=== PATIENT | female | born 1960 | race Caucasian/White ===

== ENCOUNTER 2016-10-28 16:23 | Emergency (ER) | payer OTHER ==
[~2016-10-28] VITALS: Ht 170.2 cm; Wt 86.2 kg
[~2016-10-28 16:23] MED LIST: ACIP20TA PO; ALBU17IN INH; ASPI81TA7 PO; DOCU10ELUD PO; FERR325T3 PO; FLUO20CA8 PO; PRAV40TA2 PO; VIT250TA PO; VITA100072 PO; VITA2000 PO; [UNRECOGNIZED DRUG - CODE] PO; [UNRECOGNIZED DRUG - OTHER] PO
--- NOTE | 2016-10-28 20:52 | REPUSA ---
CLINICAL HISTORY: Neck pain. TECHNIQUE: Multiple axial images were obtained through the cervical spine. Images were also reconstru cted in coronal and sagittal planes. The study was performed without IV contrast. COMMENTS: There is no fracture. Grade 1 anterior spondylolisthesis of C3 on C4 is seen. the paraspinal soft t issues are unremarkable. There are no lytic or blastic lesions. Straightening of cervical lordosis is seen, suggesting muscular spasm. There is evidence of multileve l disk disease, demonstrated by osteophytosis and endplate sclerosis. No significant disk herniation is noted at any level. Canal and foramina remain patent. IMPRESSION: 1. No fracture. Grade 1 anterior spondylolisthesis of C3 on C4 2. Straightening of cervical lordosis is seen, suggesting muscular spasm. 3. Minimal multilevel spondylosis. Thank you for your kind referral of this patient.
[2016-10-28] MEDS ORDERED: NORTRIPTYLINE 10 MG CAP PO ONE (22:45)
--- NOTE | 2016-10-28 22:56 | EDDOCDS ---
Nurse's Notes [facility] Name: Kelly Tompkins Age: 55 yrs Sex: Female : 1960 Arrival Date: 10/28/2016 Time: 16:23 Bed I6 Private MD: Brain Norris Diagnosis: Unspecified injury of head;Postconcussional syndrome;Spondylolisthesis, site unspecified-CERVICAL, C3-4;Cervicalgia Presentation: 10/28 17:03 Presenting complaint: Patient states: she fell flat on her back last week on the ice kcs and hit her head - still has a headache. This patient has no additional risk factors. Adult Sepsis Screening: The patient does not have new or worsening altered mentation. Patient's respiratory rate is less than 22. Systolic blood pressure is greater than 100. Patient has a qSOFA score of 0- Negative Sepsis Screen. Suicide/Homicide risk assessment- the patient denies having any suicidal and/or homicidal ideations and does not present with any other emotional, behavioral or mental health complaints. Status: Patient is not a customer service clerk or dependent. Transition of care: patient was not received from another setting of care. 17:03 Acuity: DANIEL Level 4 kcs 17:03 Method Of Arrival: Walkin/Carried/Asstd kcs Triage Assessment: 17:05 Headache History: A change in the character of the headache the patient is experiencing kcs has occured. General: Appears comfortable, well developed, well nourished, well groomed, Behavior is cooperative, pleasant. Pain: Location: head Pain currently is 4 out of 10 on a pain scale. HIV screening NA for this visit Offered previously. Neurological: Level of Consciousness is awake, alert. Respiratory: Airway is patent Respiratory effort is even, unlabored, Respiratory pattern is regular, symmetrical. Derm: Skin is intact, is healthy with good turgor, Skin is dry, Skin is normal. Historical: - Allergies: Avelox; - Home Meds: 1. Aciphex 20 mg Oral TbEC 1 tab once daily 2. albuterol sulfate 1.25 mg/3 mL Nebulizer nebu 3 mL 4 times per day 3. Vitamin B-12 1,000 mcg Oral tab daily 4. Vitamin C 300 mg Oral chew daily 5. fluoxetine 20 mg Oral cap 1 cap once daily 6. glucosamine-chondroitin 751-091-32-5 mg oral tab daily (Last dose: 10/28/2016) 7. lorazepam 0.5 mg Oral tab .5 0.5-1 tab 3 times per day 8. metformin 500 mg Oral Tb24 1 tab once daily 9. Myrbetriq 50 mg oral Tb24 1 tab once daily 10. ocean nasal spray 0.65% 11. pravastatin 40 mg oral tab 1 tab once daily 12. ProAir HFA 90 mcg/actuation inhalation HFAA 1 puff every 4 hours 13. Pulmicort Turbuhaler 200 mcg/actuation Inhl aepb daily 14. Vitamin D 2000 unit Oral daily 15. zostavax daily - PSHx: Elbow, right fracture repair with pin and wire; Foot left fracture repair with screw placement and subsequent removal; Benign cyst removal from left breast x 3; - Social history: Smoking status: Patient states was never smoker of tobacco. No barriers to communication noted, The patient speaks fluent Bulgarian. - Family history: Not pertinent. - : The pt / caregiver states he / she is not on anticoagulants. Home medication list is obtained from the patient. - Exposure Risk Screening:: None identified. Screenin:24 Infection Control. cmb 22:49 Screening information is obtained from the patient. Fall risk: No risks identified. dsf Assistance ADL's: requires no assistance with activities of daily living. Abuse/DV Screen: The patient / caregiver reports he/she is: not in a situation that causes fear, pain or injury. Nutritional screening: No deficits noted. Advance Directives: Currently, there is no health care proxy. home support is adequate. Assessment: 19:13 Adult Sepsis Screening: The patient does not have new or worsening altered mentation. lf1 Patient's respiratory rate is less than 22. Systolic blood pressure is greater than 100. Patient has a qSOFA score of 0- Negative Sepsis Screen. General: Appears in no apparent distress, comfortable, Behavior is cooperative. Pain: Location: back of head raidiating to front and into neck Pain currently is 5 out of 10 on a pain scale. Neurological: Level of Consciousness is awake, alert, Oriented to person, place, time. Neurological: Reports headache. EENT: No deficits noted. Cardiovascular: Chest pain is denied. Respiratory: Respiratory effort is even, unlabored. GI: Reports nausea, Denies vomiting. Derm: Skin is intact. 22:48 General: Appears in no apparent distress, comfortable, Behavior is appropriate for age, dsf cooperative. Pain: Pain currently is 5 out of 10 on a pain scale. Neurological: Level of Consciousness is awake, alert. Cardiovascular: Capillary refill < 3 seconds. Respiratory: Airway is patent Respiratory effort is even, unlabored, Respiratory pattern is regular, symmetrical. Derm: Skin is pink, warm & dry. Vital Signs: 16:25 BP 144 / 77; Pulse 101; Resp 16; Temp 97; Pulse Ox 100% ; Weight 86.18 kg; Height 5 ft. cmb 7 in. (170.18 cm); Pain 10/10; 19:13 BP 151 / 77; Pulse 97; Resp 18; Pulse Ox 98% on R/A; Pain 5/10; lf1 21:36 BP 163 / 97; Pulse 76; Resp 18; Temp 99.0(TE); Pulse Ox 97% on R/A; Pain 5/10; ar3 22:55 BP 163 / 85; Pulse 85; Resp 16; Temp 96.0; Pulse Ox 96% on R/A; Pain 4/10; ead 16:25 Body Mass Index 29.76 (86.18 kg, 170.18 cm) cmb Vitals: 16:25 Log In Time: October 28, 2016 at 16:16. cmb ED Course: 16:24 Patient visited by Mera Rivera. cmb 16:24 Patient moved to Waiting cmb 16:25 Brain Norris is Private Physician. cmb 16:25 Patient moved to Pre RCE cmb 17:04 Triage Initiated kcs 19:13 Patient visited by Deja Marshall RN. lf1 19:13 Patient moved to Triage 1 lf1 19:16 Christos Posey RPA-C is [facility]. ck7 19:16 Ricki Sanchez MD is Attending Physician. ck7 19:37 Patient visited by Christos Posey RPA-C. ck7 19:37 Patient visited by Christos Posey RPA-C. ck7 19:49 Patient moved to TR2 ar3 20:42 Patient visited by Christos Posey RPA-C. ck7 21:24 Patient moved to I6 / 28 lf1 21:28 Patient visited by Christos Posey RPA-C. ck7 21:33 CT Head Without Contrast Returned. EDMS 21:33 CT Spine,Cervical W/o Contrast Returned. EDMS 21:36 Patient visited by Barbara Castro PCA. ar3 22:13 Patient visited by Christos Posey RPA-C. ck7 22:13 Brain Norris is Referral Physician. ck7 22:13 Carley Kendall is Referral Physician. ck7 22:49 The patient / caregiver is instructed regarding the plan of care and ED course. dsf 22:49 No IV's were initiated during this patient's visit. No procedures done that require dsf assistance. Administered Medications: 22:09 CANCELLED (Duplicate Order): Nortriptyline 10 mg PO once ck7 22:51 Drug: Nortriptyline 10 mg Route: PO; dsf Order Results: Radiology Order: CT Head Without Contrast Test: CT Head Without Contrast REASON FOR EXAMINATION: head injury, frank x 4 days, r/o bleed; ; CLINICAL HISTORY: Head trauma.; TECHNIQUE: Multiple axial brain CT scan sections were obtained from base to vertex without contrast a; dministration.; COMMENTS:; There is no evidence of skull fracture.; The study shows normal configuration of sella turcica. There are no intra or extra-axial collections.; There is no mass effect or midline shift. There is no evidence of hematoma formation. No hydrocephal; us is present. No abnormal calcifications are noted.; No significant abnormalities are seen either in the posterior fossa or supratentorial compartment.; The sinuses and mastoid air cells are patent.; IMPRESSION:; No evidence of acute intracranial pathology. No intracranial hemorrhage or skull fracture.; Thank you for your kind referral of this patient.; ; Radiology Order: CT Spine,Cervical W/o Contrast Test: CT Spine,Cervical W/o Contrast REASON FOR EXAMINATION: fall, neck pain, r/o fx; ; CLINICAL HISTORY: Neck pain.; TECHNIQUE: Multiple axial images were obtained through the cervical spine. Images were also reconstru; cted in coronal and sagittal planes. The study was performed without IV contrast.; COMMENTS:; There is no fracture. Grade 1 anterior spondylolisthesis of C3 on C4 is seen. the paraspinal soft t; issues are unremarkable. There are no lytic or blastic lesions.; Straightening of cervical lordosis is seen, suggesting muscular spasm. There is evidence of multileve; l disk disease, demonstrated by osteophytosis and endplate sclerosis.; No significant disk herniation is noted at any level. Canal and foramina remain patent.; IMPRESSION:; 1. No fracture. Grade 1 anterior spondylolisthesis of C3 on C4; 2. Straightening of cervical lordosis is seen, suggesting muscular spasm.; 3. Minimal multilevel spondylosis.; Thank you for your kind referral of this patient.; ; Outcome: 22:14 Discharge ordered by Provider. ck7 22:49 Discharge Assessment: Patient awake, alert and oriented x 3. No cognitive and/or dsf functional deficits noted. Patient verbalized understanding of disposition instructions. patient administered narcotics - no. The following High Risk Discharge criteria are identified: None. Discharged to home ambulatory, with significant other. Condition: stable. Discharge instructions given to patient, Instructed on discharge instructions, follow up and referral plans. medication usage, no driving heavy equipment, Demonstrated understanding of instructions, medications, Pt was receptive of discharge instructions/ teaching. Prescriptions given X 3. CT Study completed. Property sent home with patient. 22:55 Patient left the ED. cedric Signatures: Dispatcher [employer] EDSenia Tinajero, RN RN Deja DietzRN RN lf1 Barbara Castro, NUT PICKER NUT PICKER ar3 Jerri DhillonRN Mera Pham Christopher, RPA-C RPA-Cck7 Kaci Milian RN RN ead Belles, Michael,RN RN mb9 MTDD
--- NOTE | 2016-10-28 22:56 | EDDOCDS ---
Physician Documentation [facility] Name: Kelly Tompkins Age: 55 yrs Sex: Female : 1960 Arrival Date: 10/28/2016 Time: 16:23 Bed I6 Private MD: Brain Norris Disposition: 10/28/16 22:14 Discharged to Home/Self Care. Impression: Unspecified injury of head, Postconcussional syndrome, Spondylolisthesis, site unspecified - CERVICAL, C3-4, Cervicalgia. - Condition is Stable. - Discharge Instructions: Post-Concussion Syndrome, Soft Tissue Injury of the Neck. - Prescriptions for nortriptyline 10 mg Oral capsule - take 2 capsule by ORAL route 2 times per day; 30 capsule. Robaxin 500 mg Oral Tablet - take 2 tablet by ORAL route every 6 hours As needed; 40 tablet. ZOFRAN ODT 4 mg - dissolve 1 tablet by ORAL route 4 times per day As needed do not chew, do not swallow whole; 10 tablet. - Medication Reconciliation, Local Pharmacy Hours form. - Follow up: Brain Norris; When: 2 - 3 days; Reason: Recheck today's complaints, Continuance of care. Follow up: Carley Kendall; When: 2 - 3 days; Reason: Recheck today's complaints, Continuance of care. - Problem is new. - Symptoms have improved. - Notes: USE MEDICATIONS INSTRUCTED, FOLLOW UP WITH YOUR DOCTOR AND DR KENDALL, RETURN TO THE ER IF THE SYMPTOMS WORSEN OR BECOME CONCERNING Historical: - Allergies: Avelox; - Home Meds: 1. Aciphex 20 mg Oral TbEC 1 tab once daily 2. albuterol sulfate 1.25 mg/3 mL Nebulizer nebu 3 mL 4 times per day 3. Vitamin B-12 1,000 mcg Oral tab daily 4. Vitamin C 300 mg Oral chew daily 5. fluoxetine 20 mg Oral cap 1 cap once daily 6. glucosamine-chondroitin 073-421-94-5 mg oral tab daily (Last dose: 10/28/2016) 7. lorazepam 0.5 mg Oral tab .5 0.5-1 tab 3 times per day 8. metformin 500 mg Oral Tb24 1 tab once daily 9. Myrbetriq 50 mg oral Tb24 1 tab once daily 10. ocean nasal spray 0.65% 11. pravastatin 40 mg oral tab 1 tab once daily 12. ProAir HFA 90 mcg/actuation inhalation HFAA 1 puff every 4 hours 13. Pulmicort Turbuhaler 200 mcg/actuation Inhl aepb daily 14. Vitamin D 2000 unit Oral daily 15. zostavax daily - PSHx: Elbow, right fracture repair with pin and wire; Foot left fracture repair with screw placement and subsequent removal; Benign cyst removal from left breast x 3; - Social history: Smoking status: Patient states was never smoker of tobacco. No barriers to communication noted, The patient speaks fluent Beninese. - Family history: Not pertinent. - : The pt / caregiver states he / she is not on anticoagulants. Home medication list is obtained from the patient. - Exposure Risk Screening:: None identified. Vital Signs: 10/28 16:25 BP 144 / 77; Pulse 101; Resp 16; Temp 97; Pulse Ox 100% ; Weight 86.18 kg / 189.99 lbs; cmb Height 5 ft. 7 in. (170.18 cm); Pain 10/10; 19:13 BP 151 / 77; Pulse 97; Resp 18; Pulse Ox 98% on R/A; Pain 5/10; lf1 21:36 BP 163 / 97; Pulse 76; Resp 18; Temp 99.0(TE); Pulse Ox 97% on R/A; Pain 5/10; ar3 22:55 BP 163 / 85; Pulse 85; Resp 16; Temp 96.0; Pulse Ox 96% on R/A; Pain 4/10; ead 16:25 Body Mass Index 29.76 (86.18 kg, 170.18 cm) cmb MDM: 19:45 Apply Soft Collar to Patient. ordered. ck7 19:46 CT Head Without Contrast Ordered. EDMS 19:46 CT Spine,Cervical W/o Contrast Ordered. EDMS 22:09 Nortriptyline 10 mg PO once ordered. ck7 Administered Medications: 22:09 CANCELLED (Duplicate Order): Nortriptyline 10 mg PO once ck7 22:51 Drug: Nortriptyline 10 mg Route: PO; dsf Signatures: Dispatcher [employer] EDMS Senia Oconnor RN RN kcs Fuller, Desiree, RN RN dsf Christos Posey, PRINCE-C RPA-Cck7 Kaci Milian RN RN eaBabar Guadarrama RN RN mb9 The chart was reviewed and I authenticate all verbal orders and agree with the evaluation and treatment provided.Corrections: (The following items were deleted from the chart) 22:09 22:09 Nortriptyline 10 mg PO once ordered. ck7 ck7 MTDD
--- NOTE | 2016-10-30 23:57 | EDDOCDS ---
Nurse's Notes [facility] Name: Kelly Tompkins Age: 55 yrs Sex: Female : 1960 Arrival Date: 10/28/2016 Time: 16:23 Bed I6 Private MD: Brain Norris Diagnosis: Unspecified injury of head;Postconcussional syndrome;Spondylolisthesis, site unspecified-CERVICAL, C3-4;Cervicalgia Presentation: 10/28 17:03 Presenting complaint: Patient states: she fell flat on her back last week on the ice [place] and hit her head - still has a headache. This patient has no additional risk factors. Adult Sepsis Screening: The patient does not have new or worsening altered mentation. Patient's respiratory rate is less than 22. Systolic blood pressure is greater than 100. Patient has a qSOFA score of 0- Negative Sepsis Screen. Suicide/Homicide risk assessment- the patient denies having any suicidal and/or homicidal ideations and does not present with any other emotional, behavioral or mental health complaints. Status: Patient is not a director of patient financial services or dependent. Transition of care: patient was not received from another setting of care. 17:03 Acuity: DANIEL Level 4 kcs 17:03 Method Of Arrival: Walkin/Carried/Asstd kcs Triage Assessment: 17:05 Headache History: A change in the character of the headache the patient is experiencing kcs has occured. General: Appears comfortable, well developed, well nourished, well groomed, Behavior is cooperative, pleasant. Pain: Location: head Pain currently is 4 out of 10 on a pain scale. HIV screening NA for this visit Offered previously. Neurological: Level of Consciousness is awake, alert. Respiratory: Airway is patent Respiratory effort is even, unlabored, Respiratory pattern is regular, symmetrical. Derm: Skin is intact, is healthy with good turgor, Skin is dry, Skin is normal. Historical: - Allergies: Avelox; - Home Meds: 1. Aciphex 20 mg Oral TbEC 1 tab once daily 2. albuterol sulfate 1.25 mg/3 mL Nebulizer nebu 3 mL 4 times per day 3. Vitamin B-12 1,000 mcg Oral tab daily 4. Vitamin C 300 mg Oral chew daily 5. fluoxetine 20 mg Oral cap 1 cap once daily 6. glucosamine-chondroitin 350-284-42-5 mg oral tab daily (Last dose: 10/28/2016) 7. lorazepam 0.5 mg Oral tab .5 0.5-1 tab 3 times per day 8. metformin 500 mg Oral Tb24 1 tab once daily 9. Myrbetriq 50 mg oral Tb24 1 tab once daily 10. ocean nasal spray 0.65% 11. pravastatin 40 mg oral tab 1 tab once daily 12. ProAir HFA 90 mcg/actuation inhalation HFAA 1 puff every 4 hours 13. Pulmicort Turbuhaler 200 mcg/actuation Inhl aepb daily 14. Vitamin D 2000 unit Oral daily 15. zostavax daily - PSHx: Elbow, right fracture repair with pin and wire; Foot left fracture repair with screw placement and subsequent removal; Benign cyst removal from left breast x 3; - Social history: Smoking status: Patient states was never smoker of tobacco. No barriers to communication noted, The patient speaks fluent Danish. - Family history: Not pertinent. - : The pt / caregiver states he / she is not on anticoagulants. Home medication list is obtained from the patient. - Exposure Risk Screening:: None identified. Screenin:24 Infection Control. cmb 22:49 Screening information is obtained from the patient. Fall risk: No risks identified. dsf Assistance ADL's: requires no assistance with activities of daily living. Abuse/DV Screen: The patient / caregiver reports he/she is: not in a situation that causes fear, pain or injury. Nutritional screening: No deficits noted. Advance Directives: Currently, there is no health care proxy. home support is adequate. Assessment: 19:13 Adult Sepsis Screening: The patient does not have new or worsening altered mentation. lf1 Patient's respiratory rate is less than 22. Systolic blood pressure is greater than 100. Patient has a qSOFA score of 0- Negative Sepsis Screen. General: Appears in no apparent distress, comfortable, Behavior is cooperative. Pain: Location: back of head raidiating to front and into neck Pain currently is 5 out of 10 on a pain scale. Neurological: Level of Consciousness is awake, alert, Oriented to person, place, time. Neurological: Reports headache. EENT: No deficits noted. Cardiovascular: Chest pain is denied. Respiratory: Respiratory effort is even, unlabored. GI: Reports nausea, Denies vomiting. Derm: Skin is intact. 22:48 General: Appears in no apparent distress, comfortable, Behavior is appropriate for age, dsf cooperative. Pain: Pain currently is 5 out of 10 on a pain scale. Neurological: Level of Consciousness is awake, alert. Cardiovascular: Capillary refill < 3 seconds. Respiratory: Airway is patent Respiratory effort is even, unlabored, Respiratory pattern is regular, symmetrical. Derm: Skin is pink, warm & dry. Vital Signs: 16:25 BP 144 / 77; Pulse 101; Resp 16; Temp 97; Pulse Ox 100% ; Weight 86.18 kg; Height 5 ft. cmb 7 in. (170.18 cm); Pain 10/10; 19:13 BP 151 / 77; Pulse 97; Resp 18; Pulse Ox 98% on R/A; Pain 5/10; lf1 21:36 BP 163 / 97; Pulse 76; Resp 18; Temp 99.0(TE); Pulse Ox 97% on R/A; Pain 5/10; ar3 22:55 BP 163 / 85; Pulse 85; Resp 16; Temp 96.0; Pulse Ox 96% on R/A; Pain 4/10; ead 16:25 Body Mass Index 29.76 (86.18 kg, 170.18 cm) cmb Vitals: 16:25 Log In Time: October 28, 2016 at 16:16. cmb ED Course: 16:24 Patient visited by Mera Rivera. cmb 16:24 Patient moved to Waiting cmb 16:25 Brain Norris is Private Physician. cmb 16:25 Patient moved to Pre RCE cmb 17:04 Triage Initiated kcs 19:13 Patient visited by Deja Marshall RN. lf1 19:13 Patient moved to Triage 1 lf1 19:16 [facility] ck7 19:16 Ricki Sanchez MD is Attending Physician. ck7 19:37 Patient visited by Christos Posey RPA-C. ck7 19:37 Patient visited by Christos Posey RPA-C. ck7 19:49 Patient moved to TR2 ar3 20:42 Patient visited by Christos Posey RPA-C. ck7 21:24 Patient moved to I6 / 28 lf1 21:28 Patient visited by Christos Posey RPA-C. ck7 21:33 CT Head Without Contrast Returned. EDMS 21:33 CT Spine,Cervical W/o Contrast Returned. EDMS 21:36 Patient visited by Barbara Castro PCA. ar3 22:13 Patient visited by Christos Posey RPA-C. ck7 22:13 Brain Norris is Referral Physician. ck7 22:13 Carley Kendall is Referral Physician. ck7 22:49 The patient / caregiver is instructed regarding the plan of care and ED course. dsf 22:49 No IV's were initiated during this patient's visit. No procedures done that require dsf assistance. 23:01 [facility] Payment Agreement was scanned into [employer] and attached to record. gjb 10/29 10:27 T-Sheet-- Draft Copy was scanned into [employer] and attached to record. gb Administered Medications: 10/28 22:09 CANCELLED (Duplicate Order): Nortriptyline 10 mg PO once ck7 22:51 Drug: Nortriptyline 10 mg Route: PO; dsf Order Results: Radiology Order: CT Head Without Contrast Test: CT Head Without Contrast REASON FOR EXAMINATION: head injury, frank x 4 days, r/o bleed; ; CLINICAL HISTORY: Head trauma.; TECHNIQUE: Multiple axial brain CT scan sections were obtained from base to vertex without contrast a; dministration.; COMMENTS:; There is no evidence of skull fracture.; The study shows normal configuration of sella turcica. There are no intra or extra-axial collections.; There is no mass effect or midline shift. There is no evidence of hematoma formation. No hydrocephal; us is present. No abnormal calcifications are noted.; No significant abnormalities are seen either in the posterior fossa or supratentorial compartment.; The sinuses and mastoid air cells are patent.; IMPRESSION:; No evidence of acute intracranial pathology. No intracranial hemorrhage or skull fracture.; Thank you for your kind referral of this patient.; ; Radiology Order: CT Spine,Cervical W/o Contrast Test: CT Spine,Cervical W/o Contrast REASON FOR EXAMINATION: fall, neck pain, r/o fx; ; CLINICAL HISTORY: Neck pain.; TECHNIQUE: Multiple axial images were obtained through the cervical spine. Images were also reconstru; cted in coronal and sagittal planes. The study was performed without IV contrast.; COMMENTS:; There is no fracture. Grade 1 anterior spondylolisthesis of C3 on C4 is seen. the paraspinal soft t; issues are unremarkable. There are no lytic or blastic lesions.; Straightening of cervical lordosis is seen, suggesting muscular spasm. There is evidence of multileve; l disk disease, demonstrated by osteophytosis and endplate sclerosis.; No significant disk herniation is noted at any level. Canal and foramina remain patent.; IMPRESSION:; 1. No fracture. Grade 1 anterior spondylolisthesis of C3 on C4; 2. Straightening of cervical lordosis is seen, suggesting muscular spasm.; 3. Minimal multilevel spondylosis.; Thank you for your kind referral of this patient.; ; Outcome: 22:14 Discharge ordered by Provider. ck7 22:49 Discharge Assessment: Patient awake, alert and oriented x 3. No cognitive and/or dsf functional deficits noted. Patient verbalized understanding of disposition instructions. patient administered narcotics - no. The following High Risk Discharge criteria are identified: None. Discharged to home ambulatory, with significant other. Condition: stable. Discharge instructions given to patient, Instructed on discharge instructions, follow up and referral plans. medication usage, no driving heavy equipment, Demonstrated understanding of instructions, medications, Pt was receptive of discharge instructions/ teaching. Prescriptions given X 3. CT Study completed. Property sent home with patient. 22:55 Patient left the ED. eajanet Signatures: Dispatcher [employer] EDMS Senia Oconnor, RN RN Rita Shrestha, Reg Reg gb Deja Marshall RN RN lf1 Barbara Castro, INSPECTOR WEIGHTS AND MEASURES INSPECTOR WEIGHTS AND MEASURES ar3 Jerri Dhillon RN RN dsf [place], [place] cmb Kwaczala, Christopher, SHYANNEC RPA-Cck7 Kaci Milian RN RN ead Belles, Michael, RN RN mb9 Rose Allen Chart Complete MTDD
--- NOTE | 2016-10-30 23:57 | EDDOCDS ---
Physician Documentation [facility] Name: Kelly Tompkins Age: 55 yrs Sex: Female : 1960 Arrival Date: 10/28/2016 Time: 16:23 Bed I6 Private MD: Brain Norris Disposition: 10/28/16 22:14 Discharged to Home/Self Care. Impression: Unspecified injury of head, Postconcussional syndrome, Spondylolisthesis, site unspecified - CERVICAL, C3-4, Cervicalgia. - Condition is Stable. - Discharge Instructions: Post-Concussion Syndrome, Soft Tissue Injury of the Neck. - Prescriptions for nortriptyline 10 mg Oral capsule - take 2 capsule by ORAL route 2 times per day; 30 capsule. Robaxin 500 mg Oral Tablet - take 2 tablet by ORAL route every 6 hours As needed; 40 tablet. ZOFRAN ODT 4 mg - dissolve 1 tablet by ORAL route 4 times per day As needed do not chew, do not swallow whole; 10 tablet. - Medication Reconciliation, Local Pharmacy Hours form. - Follow up: Brain Norris; When: 2 - 3 days; Reason: Recheck today's complaints, Continuance of care. Follow up: Carley Kendall; When: 2 - 3 days; Reason: Recheck today's complaints, Continuance of care. - Problem is new. - Symptoms have improved. - Notes: USE MEDICATIONS INSTRUCTED, FOLLOW UP WITH YOUR DOCTOR AND DR KENDALL, RETURN TO THE ER IF THE SYMPTOMS WORSEN OR BECOME CONCERNING Historical: - Allergies: Avelox; - Home Meds: 1. Aciphex 20 mg Oral TbEC 1 tab once daily 2. albuterol sulfate 1.25 mg/3 mL Nebulizer nebu 3 mL 4 times per day 3. Vitamin B-12 1,000 mcg Oral tab daily 4. Vitamin C 300 mg Oral chew daily 5. fluoxetine 20 mg Oral cap 1 cap once daily 6. glucosamine-chondroitin 611-458-45-5 mg oral tab daily (Last dose: 10/28/2016) 7. lorazepam 0.5 mg Oral tab .5 0.5-1 tab 3 times per day 8. metformin 500 mg Oral Tb24 1 tab once daily 9. Myrbetriq 50 mg oral Tb24 1 tab once daily 10. ocean nasal spray 0.65% 11. pravastatin 40 mg oral tab 1 tab once daily 12. ProAir HFA 90 mcg/actuation inhalation HFAA 1 puff every 4 hours 13. Pulmicort Turbuhaler 200 mcg/actuation Inhl aepb daily 14. Vitamin D 2000 unit Oral daily 15. zostavax daily - PSHx: Elbow, right fracture repair with pin and wire; Foot left fracture repair with screw placement and subsequent removal; Benign cyst removal from left breast x 3; - Social history: Smoking status: Patient states was never smoker of tobacco. No barriers to communication noted, The patient speaks fluent [place] Verdean. - Family history: Not pertinent. - : The pt / caregiver states he / she is not on anticoagulants. Home medication list is obtained from the patient. - Exposure Risk Screening:: None identified. Vital Signs: 10/28 16:25 BP 144 / 77; Pulse 101; Resp 16; Temp 97; Pulse Ox 100% ; Weight 86.18 kg / 189.99 lbs; cmb Height 5 ft. 7 in. (170.18 cm); Pain 10/10; 19:13 BP 151 / 77; Pulse 97; Resp 18; Pulse Ox 98% on R/A; Pain 5/10; lf1 21:36 BP 163 / 97; Pulse 76; Resp 18; Temp 99.0(TE); Pulse Ox 97% on R/A; Pain 5/10; ar3 22:55 BP 163 / 85; Pulse 85; Resp 16; Temp 96.0; Pulse Ox 96% on R/A; Pain 4/10; ead 16:25 Body Mass Index 29.76 (86.18 kg, 170.18 cm) cmb MDM: 19:45 Apply Soft Collar to Patient. ordered. ck7 19:46 CT Head Without Contrast Ordered. EDMS 19:46 CT Spine,Cervical W/o Contrast Ordered. EDMS 22:09 Nortriptyline 10 mg PO once ordered. ck7 23:01 [facility] Payment Agreement was scanned into [employer] and attached to record. gjb 23: Financial registration complete. gjalexi 10/29 10:27 T-Sheet-- Draft Copy was scanned into [employer] and attached to record. gb Administered Medications: 10/28 22:09 CANCELLED (Duplicate Order): Nortriptyline 10 mg PO once ck7 22:51 Drug: Nortriptyline 10 mg Route: PO; [facility] Signatures: Dispatcher [employer] EDSenia Tinajero, RN RN Rita Shrestha, Joaquin Reg Jerri Schwarz RN RN dsf Christos Posey, PRINCE-C RPA-Cck7 Kaci Milian RN RN Babar YuRN RN Rose Ventura The chart was reviewed and I authenticate all verbal orders and agree with the evaluation and treatment provided.Corrections: (The following items were deleted from the chart) 22:09 22:09 Nortriptyline 10 mg PO once ordered. ck7 ck7 Attachments: 23:01 [facility] Payment Agreement gjb 10/29 10:27 T-Sheet-- Draft Copy gb Chart Complete MTDD
--- NOTE | 2016-10-30 23:57 | EDDOCDS ---
Physician Documentation [facility] Name: Kelly Tompkins Age: 55 yrs Sex: Female : 1960 Arrival Date: 10/28/2016 Time: 16:23 Bed I6 Private MD: Brain Norris Disposition: 10/28/16 22:14 Discharged to Home/Self Care. Impression: Unspecified injury of head, Postconcussional syndrome, Spondylolisthesis, site unspecified - CERVICAL, C3-4, Cervicalgia. - Condition is Stable. - Discharge Instructions: Post-Concussion Syndrome, Soft Tissue Injury of the Neck. - Prescriptions for nortriptyline 10 mg Oral capsule - take 2 capsule by ORAL route 2 times per day; 30 capsule. Robaxin 500 mg Oral Tablet - take 2 tablet by ORAL route every 6 hours As needed; 40 tablet. ZOFRAN ODT 4 mg - dissolve 1 tablet by ORAL route 4 times per day As needed do not chew, do not swallow whole; 10 tablet. - Medication Reconciliation, Local Pharmacy Hours form. - Follow up: Brain Norris; When: 2 - 3 days; Reason: Recheck today's complaints, Continuance of care. Follow up: Carley Kendall; When: 2 - 3 days; Reason: Recheck today's complaints, Continuance of care. - Problem is new. - Symptoms have improved. - Notes: USE MEDICATIONS INSTRUCTED, FOLLOW UP WITH YOUR DOCTOR AND DR KENDALL, RETURN TO THE ER IF THE SYMPTOMS WORSEN OR BECOME CONCERNING Historical: - Allergies: Avelox; - Home Meds: 1. Aciphex 20 mg Oral TbEC 1 tab once daily 2. albuterol sulfate 1.25 mg/3 mL Nebulizer nebu 3 mL 4 times per day 3. Vitamin B-12 1,000 mcg Oral tab daily 4. Vitamin C 300 mg Oral chew daily 5. fluoxetine 20 mg Oral cap 1 cap once daily 6. glucosamine-chondroitin 305-281-87-5 mg oral tab daily (Last dose: 10/28/2016) 7. lorazepam 0.5 mg Oral tab .5 0.5-1 tab 3 times per day 8. metformin 500 mg Oral Tb24 1 tab once daily 9. Myrbetriq 50 mg oral Tb24 1 tab once daily 10. ocean nasal spray 0.65% 11. pravastatin 40 mg oral tab 1 tab once daily 12. ProAir HFA 90 mcg/actuation inhalation HFAA 1 puff every 4 hours 13. Pulmicort Turbuhaler 200 mcg/actuation Inhl aepb daily 14. Vitamin D 2000 unit Oral daily 15. zostavax daily - PSHx: Elbow, right fracture repair with pin and wire; Foot left fracture repair with screw placement and subsequent removal; Benign cyst removal from left breast x 3; - Social history: Smoking status: Patient states was never smoker of tobacco. No barriers to communication noted, The patient speaks fluent Gambian. - Family history: Not pertinent. - : The pt / caregiver states he / she is not on anticoagulants. Home medication list is obtained from the patient. - Exposure Risk Screening:: None identified. Vital Signs: 10/28 16:25 BP 144 / 77; Pulse 101; Resp 16; Temp 97; Pulse Ox 100% ; Weight 86.18 kg / 189.99 lbs; cmb Height 5 ft. 7 in. (170.18 cm); Pain 10/10; 19:13 BP 151 / 77; Pulse 97; Resp 18; Pulse Ox 98% on R/A; Pain 5/10; lf1 21:36 BP 163 / 97; Pulse 76; Resp 18; Temp 99.0(TE); Pulse Ox 97% on R/A; Pain 5/10; ar3 22:55 BP 163 / 85; Pulse 85; Resp 16; Temp 96.0; Pulse Ox 96% on R/A; Pain 4/10; ead 16:25 Body Mass Index 29.76 (86.18 kg, 170.18 cm) cmb MDM: 19:45 Apply Soft Collar to Patient. ordered. ck7 19:46 CT Head Without Contrast Ordered. EDMS 19:46 CT Spine,Cervical W/o Contrast Ordered. EDMS 22:09 Nortriptyline 10 mg PO once ordered. ck7 23:01 [facility] Payment Agreement was scanned into [employer] and attached to record. gjb 23: Financial registration complete. gjalexi 10/29 10:27 T-Sheet-- Draft Copy was scanned into [employer] and attached to record. gb Administered Medications: 10/28 22:09 CANCELLED (Duplicate Order): Nortriptyline 10 mg PO once ck7 22:51 Drug: Nortriptyline 10 mg Route: PO; [facility] Signatures: Dispatcher [employer] EDSenia Tinajero, RN RN Rita Shrestha, Joaquin Reg Jerri Schwarz RN RN dsf Christos Poesy, PRINCE-C RPA-Cck7 Kaci Milian RN RN Babar YuRN RN Rose Ventura The chart was reviewed and I authenticate all verbal orders and agree with the evaluation and treatment provided.Corrections: (The following items were deleted from the chart) 22:09 22:09 Nortriptyline 10 mg PO once ordered. ck7 ck7 Attachments: 23:01 [facility] Payment Agreement gjb 10/29 10:27 T-Sheet-- Draft Copy gb Chart Complete MTDD
== END 2016-10-28 22:55 | disposition home or self-care (01) ==
LOC: M ED 16:23
DX: F07.81 Postconcussional syndrome (principal); M43.10 Spondylolisthesis, site unspecified; M54.2 Cervicalgia; Z79.51 Long term (current) use of inhaled steroids; Z79.899 Other long term (current) drug therapy; Z79.84 Long term (current) use of oral hypoglycemic drugs; Z88.1 Allergy status to other antibiotic agents

== ENCOUNTER → 2016-11-05 | Outpatient (CLI) | payer OTHER ==
[2016-11-05 08:57] LABS: BASO % 0.3 % (0.0-1.0); EOS # 0.2 K/mm3 (0.0-0.50); EOS % 3.2 % (0.0-3.0); LARGE UNSTAINED CELL # 0.1 K/mm3 (0.0-0.4); LARGE UNSTAINED CELL % 2.1 % (0.0-4.0); LYMPH # 1.1 K/mm3 (1.5-4.5); LYMPH % 20.5 % (24.0-44.0); MEAN CORPUSCULAR HEMOGLOBIN 28.3 pg (27.0-33.0); MEAN CORPUSCULAR HGB CONC 32.2 g/dl (32.0-36.5); MEAN CORPUSCULAR VOLUME 87.7 fl (80.0-96.0); MONO # 0.3 K/mm3 (0.0-0.8); MONO % 5.6 % (0.0-5.0); NEUTROPHILS # 3.7 K/mm3 (1.8-7.7); NEUTROPHILS % 68.3 % (36.0-66.0); PLATELET COUNT, AUTOMATED 213 k/mm3 (150-450); RED CELL DISTRIBUTION WIDTH 13.7 % (11.5-14.5); WHITE BLOOD COUNT 5.3 K/mm3 (4.0-10.0)
[2016-11-05 09:22] LABS: ERYTHROCYTE SEDIMENTATION RATE 20 mm/hr (0-30)
[2016-11-05 09:24] LABS: ALBUMIN 3.6 GM/DL (3.2-5.2); ALBUMIN/GLOBULIN RATIO 1.13 (1.00-1.93); ALKALINE PHOSPHATASE 126 U/L (45-117); ALT/SGPT 32 U/L (12-78); ANION GAP 7 MEQ/L (8-16); AST/SGOT 16 U/L (15-37); BILIRUBIN,TOTAL 0.3 MG/DL (0.2-1.0); BLOOD UREA NITROGEN 13 MG/DL (7-18); CALCIUM LEVEL 9.1 MG/DL (8.5-10.1); CARBON DIOXIDE LEVEL 31 MEQ/L (21-32); CHLORIDE LEVEL 102 MEQ/L (98-107); CREATININE FOR GFR 0.81 MG/DL (0.55-1.02); GLOMERULAR FILTRATION RATE > 60.0 (>51); GLUCOSE, FASTING 212 MG/DL (70-105); SODIUM LEVEL 140 MEQ/L (136-145); TOTAL PROTEIN 6.8 GM/DL (6.4-8.2)
== END ==
LOC: M LAB 08:07
PROVIDERS: ATTEND Psychiatry & Neurology Neurology
DX: R51 Headache (principal)

== ENCOUNTER → 2016-11-28 | Outpatient (CLI) | payer OTHER | LOC: M LAB 07:26 | PROVIDERS: ATTEND Family Medicine | DX: E11.9 Type 2 diabetes mellitus without complications (principal) ==

== ENCOUNTER → 2016-12-05 | Outpatient (CLI) | payer OTHER ==
--- NOTE | 2016-12-05 12:02 | REPMRS ---
Patient History The patient states she had a clinical breast exam in 11/2016. Patient is postmenopausal. Family history of prostate cancer in father at age 50 or over, breast cancer in maternal aunt at age 50 or over, and colorectal cancer in maternal aunt at age 50 or over. 3 benign excisional biopsies of the left breast, 1969. Digital Woman Screen Mammo: December 05, 2016 - Exam #: [id number] Bilateral CC and MLO view(s) were taken. Technologist: Fifi Dawkins, Technologist Prior study comparison: October 12, 2015, digital woman screen mammo performed at [facility]. December 26, 2013, digital woman screen mammo performed at [facility]. August 20, 2011, digital bilateral screening mammo performed at [facility]. FINDINGS: There are scattered fibroglandular densities. There has been no change in the appearance of the mammogram from the prior studies. There is a mild amount of scattered fibroglandular density which is fairly symmetric. There is no interval development of dominant mass, architectural distortion, or clustered microcalcification suggestive of malignancy. ASSESSMENT: BI-RADS/ACR category 1 mammogram. Negative. Recommendation Routine screening mammogram in 1 year (for women over age 40). This mammogram was interpreted with the aid of an FDA-approved computer-aided dectection system. Electronically Signed By: Andrew Cortes MD 12/05/16 5937
== END ==
LOC: M WHC 10:58
PROVIDERS: ATTEND Family Medicine
DX: Z12.31 Encounter for screening mammogram for malignant neoplasm of breast (principal)

== ENCOUNTER → 2016-12-05 | Outpatient (REF) | payer OTHER | LOC: M SFHCWAGY 11:19 | PROVIDERS: ATTEND Family Medicine | DX: Z12.4 Encounter for screening for malignant neoplasm of cervix (principal); Z12.31 Encounter for screening mammogram for malignant neoplasm of breast ==

== ENCOUNTER → 2017-03-31 | Outpatient (REF) | payer OTHER | LOC: M LABDRAW1 11:47 | PROVIDERS: ATTEND Family Medicine | DX: E11.9 Type 2 diabetes mellitus without complications (principal) ==

== ENCOUNTER → 2017-05-28 | Outpatient (REF) | payer OTHER ==
[2017-05-28 12:19] LABS: ALBUMIN 3.4 GM/DL (3.2-5.2); ALKALINE PHOSPHATASE 97 U/L (45-117); ALT/SGPT 20 U/L (12-78); ANION GAP 9 MEQ/L (8-16); AST/SGOT 8 U/L (15-37); BILIRUBIN,TOTAL 0.3 MG/DL (0.2-1.0); BLOOD UREA NITROGEN 10 MG/DL (7-18); CALCIUM LEVEL 8.5 MG/DL (8.5-10.1); CARBON DIOXIDE LEVEL 26 MEQ/L (21-32); CHLORIDE LEVEL 107 MEQ/L (98-107); CHOLESTEROL LEVEL 223 MG/DL (<200); CREATININE FOR GFR 0.72 MG/DL (0.55-1.02); GLOMERULAR FILTRATION RATE > 60.0 (>51); GLUCOSE, FASTING 191 MG/DL (70-105); POTASSIUM SERUM 4.2 MEQ/L (3.5-5.1); SODIUM LEVEL 142 MEQ/L (136-145); TOTAL PROTEIN 6.5 GM/DL (6.4-8.2); TRIGLYCERIDES LEVEL 181 MG/DL (<150)
[2017-05-28 12:37] LABS: BASO % 0.3 % (0.0-1.0); EOS # 0.1 K/mm3 (0.0-0.50); EOS % 2.6 % (0.0-3.0); LYMPH # 1.3 K/mm3 (1.5-4.5); LYMPH % 25.9 % (24.0-44.0); MEAN CORPUSCULAR HEMOGLOBIN 29.9 pg (27.0-33.0); MEAN CORPUSCULAR HGB CONC 33.5 g/dl (32.0-36.5); MEAN CORPUSCULAR VOLUME 89.3 fl (80.0-96.0); MONO # 0.3 K/mm3 (0.0-0.8); MONO % 5.1 % (0.0-5.0); NEUTROPHILS # 3.1 K/mm3 (1.8-7.7); NEUTROPHILS % 64.3 % (36.0-66.0); RED CELL DISTRIBUTION WIDTH 14.2 % (11.5-14.5); WHITE BLOOD COUNT 4.8 K/mm3 (4.0-10.0)
== END ==
LOC: M LABDRAW1 10:53
PROVIDERS: ATTEND Family Medicine
DX: F32.9 Major depressive disorder, single episode, unspecified (principal); E78.5 Hyperlipidemia, unspecified; D50.0 Iron deficiency anemia secondary to blood loss (chronic); M19.90 Unspecified osteoarthritis, unspecified site; E11.9 Type 2 diabetes mellitus without complications

== ENCOUNTER → 2018-01-29 | Outpatient (REF) | payer OTHER | LOC: M SFHCWAGY 09:50 | DX: Z12.4 Encounter for screening for malignant neoplasm of cervix (principal) | CPT/HCPCS: G0123 ==

== ENCOUNTER → 2018-07-15 | Outpatient (REF) | payer OTHER ==
[2018-07-17 00:08] LABS: TISSUE TRANSGLUTAMINASE IgA <2 U/mL (0-3)
== END ==
LOC: M LABDRAW1 13:53
DX: D50.9 Iron deficiency anemia, unspecified (principal)

== ENCOUNTER → 2018-07-16 | Outpatient (REF) | payer OTHER | LOC: M LAB REF 10:01 | DX: D50.9 Iron deficiency anemia, unspecified (principal) ==

== ENCOUNTER 2018-08-24 06:22 | Day surgery (SDC) | payer OTHER ==
[2018-08-24] MEDS: NS 1,000 ML IV (06:00)
[2018-08-24] MEDS ORDERED: PROPOFOL 200 MG/20 ML VIAL As Ordered ×3 (07:21→07:59)
[2018-08-24] MEDS ORDERED: fentaNYL 100 MCG/2 ML INJECTION (J3010) As Ordered (07:24)
[2018-08-24] MEDS ORDERED: LIDOCAINE 1% MDV 20ML VIAL As Ordered (07:25)
== END 2018-08-24 08:44 | disposition home or self-care (01) ==
LOC: M OPP 06:22
DX: K64.0 First degree hemorrhoids (principal); K44.9 Diaphragmatic hernia without obstruction or gangrene; D50.9 Iron deficiency anemia, unspecified; I10 Essential (primary) hypertension; E78.00 Pure hypercholesterolemia, unspecified; J45.909 Unspecified asthma, uncomplicated; E11.9 Type 2 diabetes mellitus without complications; K21.9 Gastro-esophageal reflux disease without esophagitis; G43.909 Migraine, unspecified, not intractable, without status migrainosus; Z79.84 Long term (current) use of oral hypoglycemic drugs; Z79.899 Other long term (current) drug therapy; Z88.8 Allergy status to other drugs, medicaments and biological substances
CPT/HCPCS: 45378

== ENCOUNTER → 2018-09-28 | Outpatient (CLI) | payer OTHER ==
[~2018-09-28] MED LIST changes: -ACIP20TA PO; -ALBU17IN INH; -ASPI81TA7 PO; -DOCU10ELUD PO; +E-Z-GAS II EFFERVESCENT PACKET (SODIUM BICARB./CITRIC ACID/SIMETHICONE) As Ordered; +E-Z-HD 98% w/w 340GM SUSP BTL As Ordered; +E-Z-PAQUE 96% w/w SUSP 176GM BTL As Ordered; -FERR325T3 PO; -FLUO20CA8 PO; -PRAV40TA2 PO; -VIT250TA PO; -VITA100072 PO; -VITA2000 PO; -[UNRECOGNIZED DRUG - CODE] PO; -[UNRECOGNIZED DRUG - OTHER] PO
== END ==
LOC: M RAD 08:16
DX: D50.9 Iron deficiency anemia, unspecified (principal)
CPT/HCPCS: 74245

== ENCOUNTER → 2019-02-11 | Outpatient (CLI) | payer OTHER ==
[~2019-02-11] MED LIST changes: +ACIP20TA PO; +ALBU17IN INH; +ASPI81TA7 PO; +BUDE180INH INH; +CLOB05OI TOP; +DOCU5LIQ PO; -E-Z-GAS II EFFERVESCENT PACKET (SODIUM BICARB./CITRIC ACID/SIMETHICONE) As Ordered; -E-Z-HD 98% w/w 340GM SUSP BTL As Ordered; -E-Z-PAQUE 96% w/w SUSP 176GM BTL As Ordered; +FERR324T2 PO; +FERR325T3 PO; +FLUO20CA8 PO; +JANU100T PO; +LISI-542 PO; +METF-882 PO; +MYRB50TA PO; +PRAV40TA2 PO; +PROAAER10 INH; +RABE1TAB PO; +SALI0.6528; +VIT250TA PO; +VITA10002 PO; +VITA100072 PO; +VITA2000 PO; +VITA500079 PO; +VITA500T PO; +[UNRECOGNIZED DRUG - CODE] PO; +[UNRECOGNIZED DRUG - OTHER] PO
--- NOTE | 2019-02-11 10:25 | REPMRS ---
Patient History The patient states she has not had a clinical breast exam in over a year. Family history of breast cancer at age 50 or over and colorectal cancer at age 50 or over in maternal aunt, prostate cancer at age 50 or over in father. 3 benign excisional biopsies of the left breast, 1970. Digital Woman Screen Mammo: February 11, 2019 - Exam #: [id number] Bilateral CC and MLO view(s) were taken. Technologist: Amena Peng, Technologist Prior study comparison: January 29, 2018, digital woman screen mammo performed at [facility]. December 05, 2016, digital woman screen mammo performed at [facility]. October 12, 2015, digital woman screen mammo performed at [facility]. FINDINGS: The breast tissue is heterogeneously dense. This may lower the sensitivity of mammography. There is some postoperative fibrosis again noted laterally in the right breast. Some involutional change has taken place since prior mammography. There is a moderate amount of heterogeneously dense fibroglandular tissue which is fairly symmetric. There is no interval development of dominant mass, architectural distortion, or clustered microcalcification typical of malignancy. There has been no change in the appearance of the mammogram from the prior studies. 3-D tomosynthesis shows no additional findings. Assessment: BI-RADS/ACR category 2 mammogram. Benign Findings. Recommendation Routine screening mammogram of both breasts in 1 year (for women over age 40). This patient's Lifetime Breast Cancer RIsk is estimated at 14.7 %. This mammogram was interpreted with the aid of an FDA-approved computer-aided dectection system. Electronically Signed By: Andrew Cortes MD 02/11/19 1024
== END ==
LOC: M WHC 09:12
PROVIDERS: ATTEND Family Medicine
DX: Z12.31 Encounter for screening mammogram for malignant neoplasm of breast (principal); Z80.3 Family history of malignant neoplasm of breast

== ENCOUNTER → 2019-02-11 | Outpatient (REF) | payer OTHER | LOC: M SFHCWAGY 09:56 | PROVIDERS: ATTEND Family Medicine | DX: Z12.4 Encounter for screening for malignant neoplasm of cervix (principal) ==

== ENCOUNTER → 2019-02-11 | Outpatient (REF) | payer OTHER | LOC: M LAB REF 12:57 | PROVIDERS: ATTEND Family Medicine | DX: Z12.4 Encounter for screening for malignant neoplasm of cervix (principal) ==

== ENCOUNTER → 2020-02-17 | Outpatient (CLI) | payer OTHER ==
[~2020-02-17] MED LIST changes: +CYAN100049 PO; +VITA-243 PO; -VITA10002 PO; -VITA500T PO
--- NOTE | 2020-02-17 15:13 | REPMRS ---
Patient History The patient states she has not had a clinical breast exam in over a year. Family history of breast cancer at age 50 or over and colorectal cancer at age 50 or over in maternal aunt, prostate cancer at age 50 or over in father. 3 benign excisional biopsies of the left breast, 1969. VOLPARA DENSITY B. 3D TOMOSYNTHESIS WAS PERFORMED. [facility] lifetime risk for breast cancer is 14.2%. Digital Woman Screen Mammo: February 17, 2020 - Exam #: [id number] Bilateral CC and MLO view(s) were taken. Technologist: Yojana Guy, Technologist Prior study comparison: February 11, 2019, bilateral digital woman screen mammo performed at [facility]. January 29, 2018, digital woman screen mammo performed at [facility]. FINDINGS: The breast tissue is heterogeneously dense. This may lower the sensitivity of mammography. There has been no change in the appearance of the mammogram from the prior studies. There is a moderate amount of residual fibroglandular tissue which is fairly symmetric. There is no interval development of dominant mass, areas of architectural distortion, or clustered microcalcification typical of malignancy. Assessment: BI-RADS/ACR category 1 mammogram. Negative Mammogram. Recommendation Routine screening mammogram in 1 year (for women over age 40). This mammogram was interpreted with the aid of an FDA-approved computer-aided dectection system. Electronically Signed By: Balaji Perea MD 02/17/20 [id number]
== END ==
LOC: M WHC 14:30
PROVIDERS: ATTEND Family Medicine
DX: Z12.31 Encounter for screening mammogram for malignant neoplasm of breast (principal)

== ENCOUNTER → 2021-02-27 | Outpatient (CLI) | payer OTHER ==
[~2021-02-27] MED LIST changes: -LISI-542 PO; +LISI-898 PO; -RABE1TAB PO; +RABE1TAB4 PO
== END ==
LOC: M WHC 12:37
PROVIDERS: ATTEND Obstetrics & Gynecology
DX: Z53.29 Procedure and treatment not carried out because of patient's decision for other reasons (principal); Z12.39 Encounter for other screening for malignant neoplasm of breast

== ENCOUNTER → 2021-02-27 | Outpatient (CLI) | payer OTHER ==
--- NOTE | 2021-02-27 14:08 | REPMRS ---
Patient History The patient states she had a clinical breast exam in February 2021. Family history of breast cancer at age 50 or over and colorectal cancer at age 50 or over in maternal aunt, prostate cancer at age 50 or over in father. 3 benign excisional biopsies of the left breast, 1970. No breast complaints today Patient signed the MRS sheet 1st covid vaccine 12/20/20-right arm-Moderna 2nd covid vaccine 01/17/21-right arm Priors on PACS Patient Identification Verified Digital Woman Screen Mammo: February 27, 2021 - Exam #: [id number] Bilateral CC and MLO view(s) were taken. Technologist: Barbara Garcia, Technologist Prior study comparison: February 17, 2020, bilateral digital woman screen mammo performed at [facility]. February 11, 2019, bilateral digital woman screen mammo performed at [facility]. FINDINGS: There are scattered fibroglandular densities. Screening. Digital screening (2D) mammography was performed bilaterally in the CC and MLO projections. Additionally, breast tomosynthesis (3D mammography) was performed bilaterally in the CC and MLO projections. Todays exam was compared to the prior exams(s). By history, the patient has no complaints of a palpable breast abnormality or other significant breast complaints. The breasts are unchanged in size and shape. There are no harris-soft tissue densities or spiculated masses. There is no internal architectural distortion. There are no suspicious harris-calcific clusters. Skin thickening or nipple retraction is not present. IMPRESSION: BI-RADS Category 2- Benign Findings(s). There is no evidence of malignant alteration of the breasts. Followup examination recommended in one year. The Volpara volumetric breast density category is B, there are scattered areas of fibroglandular density. This mammogram was read with the assistance of [employer],an FDA approved computer aided detection system for mammography. The lifetime Tyrer-Cuzick score is 13.7 % Negative x-ray reports should not delay surgical consultation if a dominant or clinically suspicious mass is present. Not all breast cancers can be identified by mammography. Therefore, we recommend that you continue to perform regular breast self-examination and physical examination and then promptly contact your physician of any concerns or changes. Adenosis and dense breasts may obscure an underlying neoplasm. Assessment: BI-RADS/ACR category 2 mammogram. Benign Findings. Recommendation Routine screening mammogram of both breasts in 1 year. Electronically Signed By: Anselmo Arana DO 02/27/21 0711
== END ==
LOC: M WHC 11:47
PROVIDERS: ATTEND Obstetrics & Gynecology
DX: Z12.39 Encounter for other screening for malignant neoplasm of breast (principal)

== ENCOUNTER 2021-03-02 18:14 | Emergency (ER) | payer OTHER ==
[~2021-03-02] VITALS: Ht 167.6 cm; Wt 86.3 kg
[2021-03-02] MEDS ORDERED: BREO1INH (18:31)
[2021-03-02] MEDS ORDERED: ATOR1TAB21 (18:31)
[2021-03-02] MEDS ORDERED: NORCO, ANEXSIA 5/325MG TABLET (HYDROcodone/ACETAMINOPHEN) PO ONE (19:10)
--- NOTE | 2021-03-02 20:11 | REP ---
INDICATION: injury to ring finger. COMPARISON: None TECHNIQUE: Four views attention 4th digit FINDINGS: Overlying bandage material obscures the bony detail. A tuft fracture cannot be ruled out secondary to the artifact. No gross fracture is identified. There is soft tissue injury of the tip of the 4th digit. IMPRESSION: As above <Electronically signed by Anselmo Arana > 03/02/212006
[2021-03-02 20:20] VITALS: BP 154/85
--- NOTE | 2021-03-03 08:13 | ED PDOC ---
Post-Departure Follow-Up radiology report faxed to Sri Gonzalez MD March 03, 2021 08:13
== END 2021-03-02 20:39 | disposition home or self-care (01) ==
LOC: M ED 18:14
DX: S61.305A Unspecified open wound of left ring finger with damage to nail, initial encounter (principal); W26.8XXA Contact with other sharp object(s), not elsewhere classified, initial encounter; Y92.018 Other place in single-family (private) house as the place of occurrence of the external cause; Y93.G3 Activity, cooking and baking; I10 Essential (primary) hypertension; J45.909 Unspecified asthma, uncomplicated; Z79.899 Other long term (current) drug therapy; Z88.1 Allergy status to other antibiotic agents

== ENCOUNTER → 2022-04-09 | Outpatient (CLI) | payer OTHER ==
[~2022-04-09] MED LIST changes: +ATOR1TAB21; +BREO1INH; -LISI-898 PO; +LISI5TAB11 PO
== END ==
LOC: M WHC 11:55
PROVIDERS: ATTEND Nurse Practitioner
DX: Z12.31 Encounter for screening mammogram for malignant neoplasm of breast (principal)

== ENCOUNTER 2023-03-23 14:40 | Emergency (ER) | payer OTHER ==
[~2023-03-23] VITALS: Ht 170.2 cm; Wt 74.5 kg
[2023-03-23] MEDS ORDERED: DULA3PEN (14:51)
[2023-03-23] MEDS ORDERED: ATOR40TA75 (14:51)
[2023-03-23] MEDS ORDERED: NAPROXEN 250 MG TAB PO ONE (15:10)
[2023-03-23] MEDS ORDERED: IBUP-1022 PO (16:25)
[2023-03-23 16:51] VITALS: BP 132/58
== END 2023-03-23 16:53 | disposition home or self-care (01) ==
LOC: M ED 14:40
DX: S63.614A Unspecified sprain of right ring finger, initial encounter (principal); W22.8XXA Striking against or struck by other objects, initial encounter; Y92.009 Unspecified place in unspecified non-institutional (private) residence as the place of occurrence of the external cause; Y93.89 Activity, other specified; Y99.8 Other external cause status; I10 Essential (primary) hypertension; E78.00 Pure hypercholesterolemia, unspecified; Z88.8 Allergy status to other drugs, medicaments and biological substances; Z79.84 Long term (current) use of oral hypoglycemic drugs; Z79.899 Other long term (current) drug therapy; Z79.51 Long term (current) use of inhaled steroids

== ENCOUNTER → 2023-06-18 | Outpatient (CLI) | payer OTHER ==
[~2023-06-18] MED LIST changes: +ATOR40TA75; +DULA3PEN; +IBUP-1022 PO
== END ==
LOC: M WHC 09:46
PROVIDERS: ATTEND Nurse Practitioner Family
DX: Z12.31 Encounter for screening mammogram for malignant neoplasm of breast (principal)

== ENCOUNTER → 2023-06-18 | Outpatient (REF) | payer OTHER | LOC: M SFHCWAGY 13:17 | PROVIDERS: ATTEND Nurse Practitioner Family | DX: Z12.4 Encounter for screening for malignant neoplasm of cervix (principal) | CPT/HCPCS: 87624; G0123 ==

== ENCOUNTER → 2024-06-29 | Outpatient (CLI) | payer MEDICARE, OTHER | LOC: M WHC 09:50 | PROVIDERS: ATTEND Nurse Practitioner Family | DX: Z12.31 Encounter for screening mammogram for malignant neoplasm of breast (principal); R92.2 Inconclusive mammogram ==

== ENCOUNTER → 2024-07-12 | Outpatient (CLI) | payer MEDICARE, OTHER | LOC: M WHC 08:34 | PROVIDERS: ATTEND Nurse Practitioner Family | DX: R92.2 Inconclusive mammogram (principal) | CPT/HCPCS: 76642; 77065; G0279 ==

== ENCOUNTER → 2025-01-24 | Outpatient (CLI) | payer MEDICARE, OTHER ==
[~2025-01-24] MED LIST changes: +BUDE180A2 INH; -BUDE180INH INH
== END ==
LOC: M WHC 08:52
PROVIDERS: ATTEND Nurse Practitioner Family
DX: R92.8 Other abnormal and inconclusive findings on diagnostic imaging of breast (principal)

== ENCOUNTER → 2025-07-03 | Outpatient (CLI) | payer MEDICARE, OTHER ==
[~2025-07-03] MED LIST changes: -IBUP-1022 PO; +IBUP600T42 PO; +METF-728 PO; -METF-882 PO; +PRAV40TA85 PO; -RABE1TAB4 PO; +RABE1TAB5 PO
== END ==
LOC: M WHC 09:29
PROVIDERS: ATTEND Nurse Practitioner Family
DX: Z12.31 Encounter for screening mammogram for malignant neoplasm of breast (principal); R92.323 Mammographic fibroglandular density, bilateral breasts